=== PATIENT | female | born 1970 | race Caucasian/White ===

== ENCOUNTER 2019-10-21 00:50 | Emergency (ER) | payer SELFPAY ==
[2019-10-21 01:06] VITALS: BP 116/83; PULSE 88; RESP 16; TEMP 36.5; O2SAT 100; BMI 18.0
--- NOTE | 2019-10-21 01:29 | W.ED.EXTPRO ---
HPI - Extremity Problem General: Chief complaint: Extremity Injury, Lower Stated complaint: hole in foot/pain/swelling Time Seen by Provider: 10/21/19 01:02 Source: patient Mode of arrival: wheelchair Limitations: no limitations History of Present Illness: HPI Narrative: Patient is a 49-year-old female who presents to ED today for evaluation of a right foot wound. Patient tells me approximately 2 weeks ago she had a developing wound to the dorsum of her right foot. She sought evaluation at [facility] in [place] a few days ago and was admitted to the hospital and had surgery to her foot yesterday. Patient tells me yesterday evening around 8 PM she woke up and was forced to leave because staff apparently found a vape pen in her bed and pills in her purse. Patient tells me the pills were antibiotics. She tells me because of this she did not receive any discharge instructions or discharge medications and would like a second opinion on what to do with her foot going forward. MD Complaint: extremity pain Location: right and lower extremity Associated symptoms: Reports no associated symptoms; Deny fever(s) Review of Systems Const: Denies: fever(s), chills, body aches or fatigue Musc: Reports: extremity pain (R foot pain/recent surgery); Denies: joint pain, joint swelling or joint redness Neuro: Denies: numbness in extremities or sensory changes Physical Exam Const: COMMON NORMALS: no acute distress, patient oriented x3, no limitations and alert Extremity: OTHER: pt has an area to lateral distal dorsal R foot that appears recently debrided; wound measures approx 3.5cm x 2cm; lesion at this time appears clean; there does not appear to be any bony or tendon excision; there is no redness/warmth to foot/leg; pulses and cap refill normal Neuro: COMMON NORMALS: patient oriented x3 SENSORIUM/ORIENTATION: Yes alert Skin: OTHER: see extremity assessment Course Vital Signs: Vital signs: Vital Signs Temperature 97.7 F 10/21/19 01:06 Pulse Rate 72 10/21/19 03:13 Respiratory Rate 14 10/21/19 03:13 Blood Pressure 132/82 10/21/19 03:13 Pulse Oximetry 100 10/21/19 03:13 MDM - Extremity (Nontraumatic) MDM Narrative: Medical decision making narrative: Records from [facility] were obtained. Dr. Garcia was the director of financial aid that operated on patient's foot. Imaging performed there did not show any bony involvement and no air was seen on her soft tissues. Operative report was essentially just a debridement/drainage of abscess. There was no exposed bone. There was a small area of extensor tendon exposure. Culture came back positive for MRSA. I did not get any paperwork regarding her discharge. She states she does not wish to go back to [facility] and wants to follow up here. I will get her set up with podiatry and wound care here. Ultimately there is no need for repeat labs/more imaging today. Clinically wound is clean. Foot has no redness/warmth. Vitals are stable. She had recently completed round of Bactrim but felt like it didn't work. Was going to place her on Doxycycline but pt tells me she is allergic. She is allergic to penicillins. I did not get a culture report from [facility]. I will place her on Clindamycin. Discharge Plan Discharge Patient Disposition: Home Clinical Impression: MRSA cellulitis of right foot Condition: Stable Prescriptions: New clindamycin HCl 300 mg capsule 300 mg PO Q6H 7 Days Qty: 28 RF: 0 Discharge Orders: Discharge Order (Routine); Ordered 10/21/19 Ordered By: Bing Schmidt Activity Restrictions/Additional Instructions: As discussed I will have case management set you up with podiatry as well as wound care. Please begin the clindamycin antibiotics as soon as possible. Keep the wound clean and dressed at all times. You need to return to the emergency department for worsening pain, redness to your foot, swelling, streaking up your leg, fevers greater than 100.4, or any other concerns you may have. Discharge Date/Time: 10/21/19 03:15 Coding Level of Care Code ED [employer] for Pravin Gregory Exam Problem Focused
[2019-10-21 03:13] VITALS: BP 132/82; PULSE 72; RESP 14; O2SAT 100
--- NOTE | 2019-10-21 09:20 | DCPLANNER ---
general manager [employer] had message to schedule a follow up appointment for patient with ortho and wound care. general manager [employer] called the ortho clinic, spoke with Esperanza, gave clinic patients information. general manager [employer] was told that patients information would be printed and reviewed. Clinic will call patient with appointment information. general manager [employer] also called [facility], spoke with Mar, gave clinic patients information. general manager [employer] was told that patient would need to follow up with surgeon that did her surgery, and be released by that surgeon before patient could be seen at [facility]ound [facility]. general manager [employer] called patient and informed patient that she would need to follow up with up surgeon in [place] and then would need to be released by that surgeon before patient could be seen at [facility].
--- NOTE | 2019-10-22 15:15 | DCPLANNER ---
Patient has a follow up appointment scheduled for , November 07, 2019 at 8:[address] Mcdowell. Clinic will call patient with appointment information.
--- NOTE | 2019-11-29 17:47 | DCPLANNER ---
Patient had a follow up appointment scheduled for 11.07.19 with ortho - patient did not attend appointment.
== END 2019-10-21 03:15 | disposition home or self-care (01) ==
PROVIDERS: Emergency Provider Physician Assistant
DX: L03.115 Cellulitis of right lower limb (principal); B95.62 Methicillin resistant Staphylococcus aureus infection as the cause of diseases classified elsewhere
CPT/HCPCS: 12345; 99281; 99282